=== PATIENT | female | born 2000 | race Caucasian/White ===

== ENCOUNTER 2025-04-08 21:52 | Emergency (ER) | payer OTHER ==
[~2025-04-08] VITALS: Ht 165.1 cm; Wt 81.8 kg
[2025-04-08 22:26] LABS: APPEARANCE,URINE CLEAR (CLEAR); GLUCOSE, URINE (UA) NEGATIVE (NEGATIVE); LEUKOCYTE ESTERASE ,URINE NEGATIVE (NEGATIVE); NITRATE,URINE NEGATIVE (NEGATIVE); OCCULT BLOOD,URINE NEGATIVE (NEGATIVE); SPECIFIC GRAVITIY, URINE 1.016 (1.003-1.030)
[2025-04-08 22:35] LABS: PLATELET COUNT (AUTO) 218 K/uL (150-450); RED BLOOD CELL COUNT(AUTO) 4.44 MIL/uL (4.00-5.20); RED CELL DISTRIBUTION WIDTH 13.4 % (11.5-14.5); WHITE BLOOD COUNT (AUTO) 6.1 K/uL (4.5-11.0)
[2025-04-08 22:42] LABS: CALCIUM, TOTAL 9.3 mg/dL (8.8-10.5); CREATININE 0.70 mg/dL (0.60-1.30); GLOMERULAR FILTR. RATE CALC > 60 mL/min (>60); GLUCOSE,RANDOM 109 mg/dL (70-110); SODIUM SERUM 138 mmol/L (136-145); UREA NITROGEN, BLOOD 12 mg/dL (7-18)
[2025-04-08 22:53] LABS: ASPARTATE AMINOTRANSFERASE 27 U/L (15-37); HCG,QUANTITATIVE < 1 mIU/mL (0-6); TOTAL PROTEIN, SERUM 7.4 g/dL (6.4-8.2)
[2025-04-09] MEDS ORDERED: POLY119P3 PO (01:22)
[2025-04-09 01:29] VITALS: BP 119/67; PULSE 69; RESP 18; TEMP 97.2; O2SAT 100
== END 2025-04-09 01:30 | disposition home or self-care (01) ==
LOC: EMS 21:52
DX: K59.00 Constipation, unspecified (principal); R10.21 Pelvic and perineal pain right side
CPT/HCPCS: 74018; 80048; 80076; 81003; 83690; 84702; 85025; 99284; 36415-L1; 36415-TC